=== PATIENT | female | born 1960 | race Two or more races ===

== ENCOUNTER 2019-08-25 15:09 | Inpatient (IN) | payer OTHER ==
[~2019-08-25] VITALS: Ht 160 cm; Wt 78.0 kg
== END 2019-09-13 12:15 | disposition home or self-care (01) | DRG 581 ==
LOC: O/R 09-12 05:58 → SURH 09-12 05:58 → SURG 09-12 10:45 → SURH 09-12 21:45
PROVIDERS: Plastic Surgery; ADMIT Surgery
PROC: 0H0V0ZZ Alteration of Bilateral Breast, Open Approach (ICD-10-PCS; 2019-09-12)
PROC: 0HB7XZZ Excision of Abdomen Skin, External Approach (ICD-10-PCS; 2019-09-12)
PROC: 07B50ZX Excision of Right Axillary Lymphatic, Open Approach, Diagnostic (ICD-10-PCS; principal; 2019-09-12 15:15)
PROC: 0HBT0ZZ Excision of Right Breast, Open Approach (ICD-10-PCS; 2019-09-12 15:15)
DX: C50.411 Malignant neoplasm of upper-outer quadrant of right female breast (principal); N62 Hypertrophy of breast; E88.1 Lipodystrophy, not elsewhere classified; M62.08 Separation of muscle (nontraumatic), other site; Z17.0 Estrogen receptor positive status [ER+]